=== PATIENT | female | born 1995 | race Caucasian/White ===

== ENCOUNTER → 2017-07-03 | Outpatient (CLI) | payer OTHER | END | disposition home or self-care (01) | LOC: C.PAPS 09:52 | PROVIDERS: ATTEND Physician Assistant | DX: Z01.419 Encounter for gynecological examination (general) (routine) without abnormal findings (principal) ==

== ENCOUNTER 2020-01-18 01:33 | Inpatient (IN) ==
[2020-01-18] MEDS ORDERED: OXYTOCIN 30 UNITS/500 ML BAG IV PRN ×3 (02:14→18:53)
[2020-01-18 02:36] LABS: Hematocrit (blood only) 39.6 % (37-47); Hemoglobin 13.1 g/dL (12.0-16.0); Mean Corpuscular Hemoglobin 29.2 pg (25-34); Mean Corpuscular Hgb Conc 33.1 g/dL (32-36); Mean Corpuscular Volume 88.2 fL (80-100); Mean Platelet Volume 10.5 fL (7.4-10.4); Platelet Count 204 K/uL (130-400); RDW Coefficient of Variation 13.8 % (11.5-14.5); RDW Standard Deviation 44.6 fL (36.4-46.3); Red Blood Count 4.49 M/uL (4.2-5.4); White Blood Count 12.18 K/uL (4.8-10.8)
--- NOTE | 2020-01-18 02:50 | History & Physical Report ---
Date of Service January 18, 2020 Assessment & Plan (1) Normal labor: Admit. plan reviewed--desires no intervention. Fetus category one. Thin mec. Anticipates . History of Present Illness Chief Complaint: leaking fluid Primary Care Provider: MARCOS PCP Patient is a 24yowf with iup at 38 6/7 weeks who presents to labor and delivery complaining of leaking fluid. [place] a pop and then had a large gush of fluid soaking her bed. Notes it was yellow/green. +contractions. +FM. uncomplicated. labs--O+/ab-/ri/rprnr/hepb-/hiv-/gc/ct-/declines cf/sma/panorama/ nl gtt x 2/gbs neg Allergies Allergy/AdvReac Type Severity Reaction Status Date / Time No Known Drug Allergies Allergy Verified 01/13/20 11:00 Home Medications Home Medications Medication Instructions Recorded Confirmed Type prenat.vits,viri,pqd-chcf-qbpaj 1 tab PO DAILY 06/11/19 01/18/20 History sertraline 100 mg PO DAILY 01/13/20 01/18/20 History sertraline 100 mg PO DAILY 01/18/20 01/18/20 History Patient History Medical History Need for rhogam due to Rh negative mother Varicella vaccination Surgical History History of oral surgery S/P wisdom tooth extraction Family History Grandfather (Paternal) Diabetes Hypertension Social History Preferred Language: Mongolian Communication Ability: Effective Manager Heavy Duty Required: No Beliefs That Will Affect Care: None marital status: marital status details: Leonard Mcleod (29) [phone] Current Living Situation: Spouse Current Living Situation Comment: lives with spouse, dog current occupational status: employed 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 Other Information That Helps Us Care for You: No Feels Safe at Home: Yes Safety Concerns: Feels Safe At This Time Smoking Status: Never smoker Hx Alcohol Use: No Hx Substance Use: No OB History g1--present BRAND LEAD History noncontributory Review of Systems All systems reviewed & are unremarkable except as noted in HPI & below Physical Exam Constitutional: WD/WN, vitals as above Psychiatric: A+Ox3, euthymic affect Genitourinary: cx--/-2 light mec toco--q3-4min efm--130s with mod variability, +accels, no decels Results & Data Vital Signs (Past 12 Hours) Vital Signs Temp Pulse Resp BP 01/18/20 02:22 87 120/75 01/18/20 01:50 36.9 C 18 Coding Level of Care Code None Diagnoses Normal labor O80; Z37.9
--- NOTE | 2020-01-18 05:53 | Labor Progress Brief Note ---
Date of Service January 18, 2020 Subjective patient uncomfortable and breathing through contractions. Assessment & Plan (1) Normal labor: Making slow progress. declines intervention. fetus category one. Physical Exam Constitutional: WD/WN, vitals as above Psychiatric: A+Ox3, euthymic affect Genitourinary: cx--4-5/90/-2 toco--q4-5 efm--130 with mod variability, accels to 150s, no decels Results & Data Vital Signs (Past 12 Hours) Vital Signs Temp Pulse Resp BP 01/18/20 05:42 81 154/80 H 01/18/20 02:22 87 120/75 01/18/20 01:50 36.9 C 18 Coding Level of Care Code None Diagnoses Normal labor O80; Z37.9
[2020-01-18] MEDS: LACTATED RINGER'S 1,000 ML IV PRN ×3 (06:29→12:01)
[2020-01-18] MEDS ORDERED: ePHEDrine sulfate 50 MG/ML AMP ONE (06:39)
[2020-01-18] MEDS ORDERED: BUPIVACAINE 0.25% 30 ML VIAL ONE (06:39)
[2020-01-18] MEDS ORDERED: fentaNYL citrate 100 MCG/2 ML VIAL ONE (06:40)
[2020-01-18] MEDS ORDERED: fentaNYL 2MCG/ML ROPIV 1.25MG/ML 100 ML BAG EPI ONE (06:41)
--- NOTE | 2020-01-18 07:15 | Anesthesiology Consultation ---
Date of Service January 18, 2020 Assessment & Plan Chart Review Chart Review: Acceptable Risk for Labor Epidural Consults Requested none History Height/Weight Height: 5 ft 5 in Weight: 81.647 kg Allergies Allergy/AdvReac Type Severity Reaction Status Date / Time No Known Drug Allergies Allergy Verified 01/13/20 11:00 Medications Home Medications Medication Instructions Recorded Confirmed Last Taken prenat.vits,viri,xwm-ljlf-cxsjt 1 tab PO DAILY 06/11/19 01/18/20 01/16/20 20:00 sertraline 100 mg PO DAILY 01/18/20 01/18/20 01/17/20 08:00 Active Medications Generic Name Dose Route Start Last Admin Trade Name Freq PRN Reason Stop Dose Admin Lactated Ringer's 1,000 mls @ 125 mls/hr 01/18/20 02:14 01/18/20 06:29 Lr IV 01/20/20 02:13 999 mls/hr .Q8H PRN Administration L&D Protocol Protocol Past Medical History Medical History Need for rhogam due to Rh negative mother Varicella vaccination Past Family History Family History Grandfather (Paternal) Diabetes Hypertension Past Surgical History Surgical History History of oral surgery S/P wisdom tooth extraction Social History Smoking Status: Never smoker Hx Alcohol Use: No Hx Substance Use: No Physical Exam Vital Signs Last Vital Signs Temp 36.6 C 01/18/20 05:40 Pulse 81 01/18/20 05:42 Resp 20 01/18/20 05:40 BP 154/80 H 01/18/20 05:42 Testing Laboratory Results 01/18/20 02:26
[2020-01-18] MEDS ORDERED: fentaNYL 2MCG/ML ROPIV 1.25MG/ML 100 ML BAG EPI PRN (07:16)
[2020-01-18] MEDS ORDERED: NALOXONE HCL 1 MG in SODIUM CHLORIDE 0.9% 1000ML 1,000 ML IV PRN (07:16)
[2020-01-18] MEDS ORDERED: NALBUPHINE HCL INJ 10 MG/ML AMP IV PRN (07:16)
[2020-01-18] MEDS ORDERED: DiphenhydrAMINE HCL 50 MG/ML VIAL IV PRN (07:16)
[2020-01-18] MEDS ORDERED: NALOXONE HCL 0.4 MG/1 ML VIAL/CARP IV PRN (07:16)
[2020-01-18] MEDS ORDERED: ePHEDrine sulfate 50 MG/ML AMP IV PRN (07:16)
--- NOTE | 2020-01-18 08:13 | Labor Progress Brief Note ---
Date of Service January 18, 2020 Subjective comfortable with epidural. Assessment & Plan (1) Normal labor: Has been 4-5 for some time. I have suggested augmentation with pitocin. She continues to decline at this point. May be more amendable in an hour. she is hoping since she is relaxed she might change. Tika will check her in one hour and if no change readdress augmentation. Physical Exam Constitutional: WD/WN, vitals as above Psychiatric: A+Ox3, euthymic affect Genitourinary: cx----no change per nursing. toco--q2-4min efm--130s with mod variability, accels present, no decels Results & Data Vital Signs (Past 12 Hours) Vital Signs Temp Pulse Resp BP Pulse Ox 01/18/20 08:08 97 H 108/68 01/18/20 08:07 95 H 98 01/18/20 08:06 90 106/62 01/18/20 08:04 100 H 108/67 01/18/20 08:02 98 H 110/69 99 01/18/20 08:00 101 H 118/77 01/18/20 07:58 101 H 114/76 01/18/20 07:57 102 H 97 01/18/20 07:56 90 109/72 01/18/20 07:54 100 H 109/53 L 01/18/20 07:52 100 H 106/64 98 01/18/20 07:50 109 H 114/77 01/18/20 07:48 95 H 116/74 01/18/20 07:47 100 H 97 01/18/20 07:46 102 H 106/74 01/18/20 07:44 95 H 112/83 01/18/20 07:42 102 H 110/79 98 01/18/20 07:40 93 H 133/82 01/18/20 07:38 99 H 119/79 01/18/20 07:37 98 H 97 01/18/20 07:36 100 H 118/79 01/18/20 07:34 36.7 C 99 H 20 130/86 01/18/20 07:32 84 99 01/18/20 07:29 94 H 147/92 H 01/18/20 07:22 88 100 01/18/20 05:42 81 154/80 H 01/18/20 05:40 36.6 C 20 01/18/20 02:22 87 120/75 01/18/20 01:50 36.9 C 18 Coding Level of Care Code None Diagnoses Normal labor O80; Z37.9
[2020-01-18] MEDS ORDERED: Nursing to Pharmacy Communication ONE (13:07)
--- NOTE | 2020-01-18 13:30 | Labor Progress Brief Note ---
Date of Service January 18, 2020 Subjective noting some lower pelvic discomfort and pressure. Assessment & Plan (1) Normal labor: Will begin second stage. fetus category one. anticipate . Physical Exam Constitutional: WD/WN, vitals as above Psychiatric: A+Ox3, euthymic affect Genitourinary: cx--c/c/+2 toco--q 3 min, pit at 10 efm--150s with mod variability, accels to 170s, no decels Results & Data Vital Signs (Past 12 Hours) Vital Signs Temp Pulse Resp BP Pulse Ox 01/18/20 13:25 101 H 113/73 01/18/20 13:22 90 99 01/18/20 13:17 99 H 97 01/18/20 13:12 97 H 97 01/18/20 13:11 97 H 110/69 01/18/20 13:07 96 H 98 01/18/20 13:02 96 H 98 01/18/20 12:57 95 H 99 01/18/20 12:56 94 H 106/74 01/18/20 12:52 91 H 98 01/18/20 12:47 99 H 98 01/18/20 12:42 92 H 98 01/18/20 12:40 95 H 118/78 01/18/20 12:37 96 H 99 01/18/20 12:32 106 H 98 01/18/20 12:27 98 H 98 01/18/20 12:25 92 H 105/61 01/18/20 12:22 94 H 96 01/18/20 12:17 92 H 96 01/18/20 12:12 91 H 98 01/18/20 12:11 88 110/66 01/18/20 12:07 94 H 98 01/18/20 12:02 89 98 01/18/20 12:00 36.7 C 01/18/20 11:57 101 H 97 01/18/20 11:56 93 H 110/62 01/18/20 11:52 94 H 97 01/18/20 11:47 93 H 98 01/18/20 11:42 94 H 97 01/18/20 11:40 95 H 99/59 L 01/18/20 11:37 94 H 96 01/18/20 11:32 94 H 97 01/18/20 11:27 94 H 114/64 99 01/18/20 11:22 88 97 01/18/20 11:17 94 H 99 01/18/20 11:12 95 H 98 01/18/20 11:11 101 H 117/61 92 01/18/20 11:07 94 H 97 01/18/20 11:02 94 H 97 01/18/20 10:57 89 98 01/18/20 10:55 95 H 108/62 01/18/20 10:52 93 H 98 01/18/20 10:47 94 H 96 01/18/20 10:42 97 H 97 01/18/20 10:40 36.5 C 96 H 20 117/56 L 01/18/20 10:37 85 97 01/18/20 10:32 89 96 01/18/20 10:27 87 96 01/18/20 10:26 81 103/59 L 01/18/20 10:22 91 H 97 01/18/20 10:17 84 96 01/18/20 10:12 87 97 01/18/20 10:10 83 107/58 L 01/18/20 10:07 84 97 01/18/20 10:02 84 98 01/18/20 10:00 18 01/18/20 09:57 88 99 01/18/20 09:55 86 20 105/59 L 01/18/20 09:52 88 97 01/18/20 09:48 94 H 92 01/18/20 09:47 87 97 01/18/20 09:46 77 111/56 L 01/18/20 09:42 95 H 97 01/18/20 09:37 87 20 97 01/18/20 09:32 88 98 01/18/20 09:27 85 97 01/18/20 09:26 86 107/55 L 01/18/20 09:22 89 97 01/18/20 09:17 96 H 98 01/18/20 09:12 96 H 98 01/18/20 09:11 97 H 121/74 01/18/20 09:07 92 H 98 01/18/20 09:02 94 H 96 01/18/20 08:57 92 H 98 01/18/20 08:55 89 18 103/65 01/18/20 08:52 98 H 98 01/18/20 08:47 91 H 98 01/18/20 08:42 97 H 98 01/18/20 08:40 102 H 90/58 L 01/18/20 08:37 98 H 98 01/18/20 08:32 93 H 98 01/18/20 08:27 99 H 99 01/18/20 08:25 101 H 18 123/65 01/18/20 08:22 93 H 99 01/18/20 08:18 101 H 91 01/18/20 08:17 97 H 99 01/18/20 08:12 100 H 97 01/18/20 08:10 93 H 113/63 01/18/20 08:08 97 H 108/68 01/18/20 08:07 95 H 98 01/18/20 08:06 90 106/62 01/18/20 08:04 100 H 18 108/67 01/18/20 08:02 98 H 110/69 99 01/18/20 08:00 101 H 20 118/77 01/18/20 07:58 101 H 20 114/76 01/18/20 07:57 102 H 97 01/18/20 07:56 90 20 109/72 01/18/20 07:54 100 H 20 109/53 L 01/18/20 07:52 100 H 20 106/64 98 01/18/20 07:50 109 H 20 114/77 01/18/20 07:48 95 H 20 116/74 01/18/20 07:47 100 H 97 01/18/20 07:46 102 H 20 106/74 01/18/20 07:44 95 H 22 112/83 01/18/20 07:42 102 H 110/79 98 01/18/20 07:40 93 H 22 133/82 01/18/20 07:38 99 H 20 119/79 01/18/20 07:37 98 H 97 01/18/20 07:36 100 H 20 118/79 01/18/20 07:34 36.7 C 99 H 20 130/86 01/18/20 07:32 84 99 01/18/20 07:29 94 H 147/92 H 01/18/20 07:22 88 100 01/18/20 05:42 81 154/80 H 01/18/20 05:40 36.6 C 20 01/18/20 02:22 87 120/75 01/18/20 01:50 36.9 C 18 Coding Level of Care Code None Diagnoses Normal labor O80; Z37.9
--- NOTE | 2020-01-18 14:42 | Labor Progress Brief Note ---
Date of Service January 18, 2020 Subjective pushing with good effort Assessment & Plan (1) Normal labor: continue second stage. good effort . fetus reassuring. anticipate . Physical Exam Constitutional: WD/WN, vitals as above Psychiatric: A+Ox3, euthymic affect Genitourinary: c/c/+2 q2min efm--150s with mod variability, accels present, no decels Results & Data Vital Signs (Past 12 Hours) Vital Signs Temp Pulse Resp BP Pulse Ox 01/18/20 14:37 115 H 98 01/18/20 14:32 98 H 96 01/18/20 14:28 122 H 164/77 H 01/18/20 14:27 124 H 95 01/18/20 14:22 117 H 99 01/18/20 14:17 103 H 98 01/18/20 14:12 97 H 99 01/18/20 14:10 100 H 114/57 L 01/18/20 14:07 107 H 98 01/18/20 14:05 106 H 92 01/18/20 14:02 95 H 98 01/18/20 13:57 94 H 98 01/18/20 13:55 98 H 112/71 01/18/20 13:52 102 H 98 01/18/20 13:47 99 H 98 01/18/20 13:42 102 H 99 01/18/20 13:41 107 H 93 01/18/20 13:40 100 H 118/76 01/18/20 13:37 99 H 100 01/18/20 13:32 102 H 99 01/18/20 13:27 99 H 98 01/18/20 13:25 101 H 113/73 01/18/20 13:22 90 99 01/18/20 13:17 99 H 97 01/18/20 13:12 97 H 97 01/18/20 13:11 97 H 110/69 01/18/20 13:07 96 H 98 01/18/20 13:02 96 H 98 01/18/20 12:57 95 H 99 01/18/20 12:56 94 H 106/74 01/18/20 12:52 91 H 98 01/18/20 12:47 99 H 98 01/18/20 12:42 92 H 98 01/18/20 12:40 95 H 118/78 01/18/20 12:37 96 H 99 01/18/20 12:32 106 H 98 01/18/20 12:27 98 H 98 01/18/20 12:25 92 H 105/61 01/18/20 12:22 94 H 96 01/18/20 12:17 92 H 96 01/18/20 12:12 91 H 98 01/18/20 12:11 88 110/66 01/18/20 12:07 94 H 98 01/18/20 12:02 89 98 01/18/20 12:00 36.7 C 01/18/20 11:57 101 H 97 01/18/20 11:56 93 H 110/62 01/18/20 11:52 94 H 97 01/18/20 11:47 93 H 98 01/18/20 11:42 94 H 97 01/18/20 11:40 95 H 99/59 L 01/18/20 11:37 94 H 96 01/18/20 11:32 94 H 97 01/18/20 11:27 94 H 114/64 99 01/18/20 11:22 88 97 01/18/20 11:17 94 H 99 01/18/20 11:12 95 H 98 01/18/20 11:11 101 H 117/61 92 01/18/20 11:07 94 H 97 01/18/20 11:02 94 H 97 01/18/20 10:57 89 98 01/18/20 10:55 95 H 108/62 01/18/20 10:52 93 H 98 01/18/20 10:47 94 H 96 01/18/20 10:42 97 H 97 01/18/20 10:40 36.5 C 96 H 20 117/56 L 01/18/20 10:37 85 97 01/18/20 10:32 89 96 01/18/20 10:27 87 96 01/18/20 10:26 81 103/59 L 01/18/20 10:22 91 H 97 01/18/20 10:17 84 96 01/18/20 10:12 87 97 01/18/20 10:10 83 107/58 L 01/18/20 10:07 84 97 01/18/20 10:02 84 98 01/18/20 10:00 18 01/18/20 09:57 88 99 01/18/20 09:55 86 20 105/59 L 01/18/20 09:52 88 97 01/18/20 09:48 94 H 92 01/18/20 09:47 87 97 01/18/20 09:46 77 111/56 L 01/18/20 09:42 95 H 97 01/18/20 09:37 87 20 97 01/18/20 09:32 88 98 01/18/20 09:27 85 97 01/18/20 09:26 86 107/55 L 01/18/20 09:22 89 97 01/18/20 09:17 96 H 98 01/18/20 09:12 96 H 98 01/18/20 09:11 97 H 121/74 01/18/20 09:07 92 H 98 01/18/20 09:02 94 H 96 01/18/20 08:57 92 H 98 01/18/20 08:55 89 18 103/65 01/18/20 08:52 98 H 98 01/18/20 08:47 91 H 98 01/18/20 08:42 97 H 98 01/18/20 08:40 102 H 90/58 L 01/18/20 08:37 98 H 98 01/18/20 08:32 93 H 98 01/18/20 08:27 99 H 99 01/18/20 08:25 101 H 18 123/65 01/18/20 08:22 93 H 99 01/18/20 08:18 101 H 91 01/18/20 08:17 97 H 99 01/18/20 08:12 100 H 97 01/18/20 08:10 93 H 113/63 01/18/20 08:08 97 H 108/68 01/18/20 08:07 95 H 98 01/18/20 08:06 90 106/62 01/18/20 08:04 100 H 18 108/67 01/18/20 08:02 98 H 110/69 99 01/18/20 08:00 101 H 20 118/77 01/18/20 07:58 101 H 20 114/76 01/18/20 07:57 102 H 97 01/18/20 07:56 90 20 109/72 01/18/20 07:54 100 H 20 109/53 L 01/18/20 07:52 100 H 20 106/64 98 01/18/20 07:50 109 H 20 114/77 01/18/20 07:48 95 H 20 116/74 01/18/20 07:47 100 H 97 01/18/20 07:46 102 H 20 106/74 01/18/20 07:44 95 H 22 112/83 01/18/20 07:42 102 H 110/79 98 01/18/20 07:40 93 H 22 133/82 01/18/20 07:38 99 H 20 119/79 01/18/20 07:37 98 H 97 01/18/20 07:36 100 H 20 118/79 01/18/20 07:34 36.7 C 99 H 20 130/86 01/18/20 07:32 84 99 01/18/20 07:29 94 H 147/92 H 01/18/20 07:22 88 100 01/18/20 05:42 81 154/80 H 01/18/20 05:40 36.6 C 20 Coding Level of Care Code None Diagnoses Normal labor O80; Z37.9
[2020-01-18] MEDS ORDERED: OXYCODONE/ACETAMINOPHEN 5mg/325mg TAB PO PRN (18:41)
[2020-01-18] MEDS ORDERED: ACETAMINOPHEN 325 MG TAB PO PRN (18:41)
--- NOTE | 2020-01-18 18:44 | Delivery Summary ---
Vaginal Delivery Summary Date of Service January 18, 2020 Vaginal Delivery Summary Pre-operative Diagnosis: at 38 6/7 srom meconium Post-operative Diagnosis: same moderate shoulder dystocia Procedure: pitocin augmentation epidural midline epis failed vacuum complicated repair--bilateral sulcal and third degree perineal EBL: 475cc Anesthesia: epidural Procedure: The patient pushed for 3 hrs 45 min to deliver a viable male infant in AYRY position. The patient requested a vacuum assist when the station was at +3. She was exhausted after pushing for about 3 hr and 15 min hours. The bladder was drained of urine. There was a large amount of caput and I was concerned that I would not be able to get a good application. I thought the baby was in op presentation. The patient desired a trial and gave verbal consent. The vacuum was applied over three contractions, could get pressure no greater than about 40mm water. Unfortunately, I could not get a good application and the vacuum popped off with all three not really bring the baby down more. At that point in time, we decided to continue to push. The baby was making slow but positive progress so decided to proceed. We did have a conversation about the possiblity of a shoulder dystocia and the possibility of a at this point. However, as we were talking, the patient continued pushing and continued to move the baby. A midline epis was cut for the vacuum application. The patient continued to push until . The baby was delivered in yary position. A moderate shoulder dystocia was then encountered. this lasted for less than a minute and was resolved with delivery of the posterior shoulder as the left arm was easily reached and swept across the body. The rest of the infant was then delivered without difficulty. The baby was placed on the maternal abdomen where he was vigorous. Cord was clamped and cut at at about 30 sec of life. Cord blood obtained. Placenta was manually extracted from the lower uterine segment. Cervix/recutm intact. On examination there were bilateral sulcal tears and a third degree perineal laceration. THe rectal sphincter was repaired by grasping with Allis clamps and 4 , figure of eight sutures were placed of 0 Vicryl. Attention was turned to the the bilateral sulcal tears which were reapproximated with 0 Vicryl. Then the rest of the perineum was repaired in the standard fashion. Hemostasis obtained with dilute pitocin and fundal massage. Apgars were 7/8. Baby weighed 8#14oz. Mother and baby doing well at the end of the delivery. [facility] [place] Vaginal Delivery Charge Vaginal Delivery Codes: 76487 global code for the antepartum, delivery, and post-
--- NOTE | 2020-01-18 18:48 | Anesthesia Procedure Note ---
Date of Service January 18, 2020 Anesthesia Post Epidural Note Vital Signs Vital Signs: Temp Pulse Resp BP Pulse Ox 36.9 C 96 H 18 110/69 99 01/18/20 18:15 01/18/20 18:40 01/18/20 18:30 01/18/20 18:40 01/18/20 17:31 Pain Intensity Bilateral Lower Abdomen: Pain Intensity: 0 Notes Mental Status: alert / awake / arousable and participated in evaluation Nausea / Vomiting: adequately controlled Pain: adequately controlled Airway Patency, RR, SpO2: stable & adequate BP & HR: stable & adequate Hydration State: stable & adequate Neuraxial Anesthesia: was administered and sensory block is resolving Anesthetic Complications: no major complications apparent Epidural: Removed without complications and With tip intact
[2020-01-18] MEDS ORDERED: SUPERCREAM 0.870% 15 GM JAR EXT PRN (18:53)
[2020-01-18] MEDS ORDERED: HYDROCORTISONE ACETATE 25 MG SUPP PR PRN (18:53)
[2020-01-18] MEDS ORDERED: BENZOCAINE 20% AER SPR 82.5 GM CAN EXT PRN (18:53)
[2020-01-18] MEDS ORDERED: DIPHTHERIA/TETANUS/PERTUSSIS 0.5 ML SYR/VIAL IM ONE (18:53)
[2020-01-18] MEDS ORDERED: bisacodyL 10 MG SUPP PR PRN (18:53)
[2020-01-18] MEDS: DOCUSATE SODIUM 100 MG CAP PO SCH (20:25)
[2020-01-18] MEDS: IBUPROFEN 600 MG TAB PO PRN (20:25)
[2020-01-19] MEDS: IBUPROFEN 600 MG TAB PO PRN ×6 (02:22→23:39)
--- NOTE | 2020-01-19 06:27 | Obstetrical Progress Note ---
Date of Service <Gerardo Olvera DO - Last Filed: 01/19/20 06:27> January 19, 2020 Assessment & Plan <DO Garth Arita Last Filed: 01/19/20 06:27> (1) Normal labor: -PPD#1 -Vitals reviewed, WNL - GBS -, Blood Type O- - Clinically stable. - Feels well today. Eating well, voiding well, ambulating well. - Pain well controlled. - Routine post- care - After discharge will have [address] Berrios. Day #:: 1 Subjective <Gerardo Olvera DO - Last Filed: 01/19/20 06:27> Ambulation: ambulating normally Voiding: no voiding problems Passing Gas:: Yes Diet Tolerance:: regular diet Lochia:: Moderate Feeding Type:: breast feeding Current Pain Level(1-10): 5 (improves with analgesics) Patient is a 24 PPD#1. Patient states that she is feeling well today and that her pain is well controlled. She does note some numbness and tingling on the R lateral upper thigh, but no weakness. She has no other complaints at this time. Constitutional: no fever and no chills Respiratory: no cough, no dyspnea and no wheezing Cardiovascular: + edema; no chest pain, no dyspnea, no palpitations and no calf pain Breast: + breast pain (nipple pain with feeds) Gastrointestinal: no abdominal pain, no nausea and no vomiting Genitourinary (female): no dysuria and no difficulty urinating Neurologic: no headache(s) Physical Exam <DO Garth Arita Last Filed: 01/19/20 06:27> Constitutional WD/WN, vitals as above Respiratory normal respiratory effort, lungs clear to auscultation Cardiovascular Rate/Rhythm: regular rate and regular rhythm Heart Sounds: normal S1 and normal S2; no click, no gallop, no murmur and no cardiac rub Extremities: + edema (trace); no calf tenderness Gastrointestinal (Abdomen) Inspection/Auscultation: abdomen normal to inspection and normal bowel sounds Percussion/Palpation: abdomen soft; abdomen nontender Genitourinary OB Exam Abdomen: + fundal height Fundus: + firm and + relation to umbilicus (at level of umbilicus, patient has not voided this AM yet); not tender and not boggy Results & Data <Gerardo Olvera DO - Last Filed: 01/19/20 06:27> Vital Signs (Past 12 Hours) Vital Signs Temp Pulse Pulse Resp BP BP Pulse Ox 01/19/20 04:00 36.8 C 88 18 101/70 01/18/20 23:30 36.7 C 90 18 97/67 L 01/18/20 21:10 36.9 C 92 H 18 108/75 98 01/18/20 20:22 105 H 106/57 L 01/18/20 20:15 36.8 C 18 01/18/20 20:10 109 H 114/56 L 01/18/20 19:55 111 H 110/58 L 01/18/20 19:45 18 01/18/20 19:40 105 H 114/58 L 01/18/20 19:25 109 H 106/66 01/18/20 19:15 18 01/18/20 19:10 101 H 122/71 01/18/20 19:00 101 H 20 122/71 01/18/20 18:55 107 H 104/74 01/18/20 18:45 18 01/18/20 18:40 96 H 110/69 01/18/20 18:30 18 01/18/20 18:25 109 H 117/82 <Connie Berrios MD, FACOG - Last Filed: 01/19/20 07:33> Co-Signing Physician Notes Resident Physician Supervision Note: I interviewed and examined the patient. Discussed with Dr. Olvera and agree with findings and plan as documented in the note. Any exceptions or clarifications are listed here: Doing well. Routine care. Has some lateral cutaneous neuropathy from let positioning with almost 4 hour push. Reassured. Should slowly improve. Documented By: Connie Berrios MD, FACOG Resident Activity Tracking <Gerardo Olvera DO - Last Filed: 01/19/20 06:27> Resident Involvement: Resident Care Provided Care Provided: OB Delivery
[2020-01-19 06:51] LABS: Hemoglobin 9.3 g/dL (12.0-16.0)
[2020-01-19] MEDS ORDERED: SERTRALINE HCL 100 MG TABLET PO SCH ×2 (09:00→21:00)
[2020-01-19] MEDS: DOCUSATE SODIUM 100 MG CAP PO SCH ×2 (09:12→19:39)
[2020-01-19] MEDS: PRENATAL VITAMIN 1 TAB PO SCH (09:13)
[2020-01-19] MEDS ORDERED: Nursing to Pharmacy Communication ONE (09:44)
[2020-01-19] MEDS ORDERED: bisacodyL 5 MG TABEC PO SCH (20:00)
--- NOTE | 2020-01-20 07:02 | Obstetrical Progress Note ---
Date of Service <Gerardo Olvera DO Last Filed: 01/20/20 07:01> January 20, 2020 Assessment & Plan <DO Garth Arita Last Filed: 01/20/20 07:01> (1) Normal labor: -PPD#2 -Vitals reviewed, WNL - GBS -, Blood Type O- - Clinically stable. - Feels well today. Eating well, voiding well, ambulating well. - Pain well controlled. - Routine post- care - Discharge instructions discussed with patient - After discharge will have [address] Berrios. Day #:: 2 Subjective <Gerardo Olvera DO Last Filed: 01/20/20 07:01> Ambulation: ambulating normally Voiding: no voiding problems Passing Gas:: Yes Diet Tolerance:: regular diet Lochia:: Small Feeding Type:: breast feeding Current Pain Level(1-10): 5 (improves with analgesics) Patient is a 24 PPD#2. Patient states that she is feeling well today and that her pain is well controlled. She has no other complaints at this time. Constitutional: no fever and no chills Respiratory: no cough, no dyspnea and no wheezing Cardiovascular: + edema; no chest pain, no dyspnea, no palpitations and no calf pain Breast: + breast pain (nipple pain with feeds) Gastrointestinal: no abdominal pain, no nausea and no vomiting Genitourinary (female): no dysuria and no difficulty urinating Neurologic: no headache(s) Physical Exam <DO Garth Arita Last Filed: 01/20/20 07:01> Constitutional WD/WN, vitals as above Respiratory normal respiratory effort, lungs clear to auscultation Cardiovascular Rate/Rhythm: regular rate and regular rhythm Heart Sounds: normal S1 and normal S2; no click, no gallop, no murmur and no cardiac rub Extremities: + edema (trace); no calf tenderness Gastrointestinal (Abdomen) Inspection/Auscultation: abdomen normal to inspection and normal bowel sounds Percussion/Palpation: abdomen soft; abdomen nontender Genitourinary OB Exam Abdomen: + fundal height Fundus: + firm and + relation to umbilicus (3cm below ); not tender and not boggy Results & Data <DO Garth Arita Last Filed: 01/20/20 07:01> Vital Signs (Past 12 Hours) Vital Signs Temp Pulse Resp BP Pulse Ox 01/19/20 23:30 36.5 C 83 16 101/65 100 01/19/20 21:00 36.9 C 88 17 105/74 98 <Richie Montgomery MD - Last Filed: 01/20/20 07:59> Co-Signing Physician Notes Patient seen and evaluated and agree with the above findings and plan. Routine care Resident Activity Tracking <Gerardo Olvera DO - Last Filed: 01/20/20 07:01> Resident Involvement: Resident Care Provided Care Provided: OB Delivery
[2020-01-20] MEDS: DOCUSATE SODIUM 100 MG CAP PO SCH (09:01)
[2020-01-20] MEDS: IBUPROFEN 600 MG TAB PO PRN (09:01)
[2020-01-20] MEDS: PRENATAL VITAMIN 1 TAB PO SCH (09:01)
--- NOTE | 2020-01-21 14:48 | Discharge Summary (DS) ---
ADMISSION DIAGNOSES: 1. Intrauterine at 38 and 6/7 weeks. 2. Spontaneous rupture of membranes. 3. Thin meconium. DISCHARGE DIAGNOSES: 1. Intrauterine at 38 and 6/7 weeks. 2. Spontaneous rupture of membranes. 3. Thin meconium. 4. Vaginal delivery. PROCEDURES: Epidural, Pitocin augmentation, failed vacuum, normal spontaneous vaginal delivery. Bilateral focal tears and third-degree laceration with repair. HISTORY OF PRESENT ILLNESS: The patient is a 24-year-old white female 1, para 0 with an intrauterine at 38 and 6/7 weeks who presented to labor and delivery complaining of leaking of fluid. She heard a pop and then had a large gush of fluid soaking her bed, notes the fluid was yellow green. She notes some contractions, good movement and her is uncomplicated. For the rest of the patient's history and physical, please see her history and physical. On physical exam, her cervix was 4, 75, -2, showing light meconium. Tocodynamometer q.3-4 minutes. EFM 130s with moderate variability plus accels, no decels. ASSESSMENT: This is an intrauterine at 38 and 6/7 weeks with spontaneous rupture of membranes. She was admitted. The fetus was category 1. HOSPITAL COURSE: The patient desired minimal intervention, so she was allowed to labor. Unfortunately, she did not make cervical change and required Pitocin augmentation. She then eventually got an epidural anesthetic. She then progressed to complete-complete and +2 station and pushed for approximately 2 hours and 45 minutes, at which point the fetus was at +2 to +3, thought to be direct OP and was exhausted, requesting assistance. I told her that I could try to assist with the vacuum; however, the patient's fetus had significant amount of caput that I was concerned about appropriate application and suction for the vacuum to work. We discussed the risks of vacuum and she desired me to proceed. We did attempt the vacuum over 3 contractions with 3 pop-offs. Pressure was never greater than 50 cm of water and I never really had good application of the vacuum because of the caput. At that point in time, I discussed a section with the patient or she could continue to push. She desired to continue to push. The patient did make slow positive progress with pushing eventually to and did deliver the head in occiput anterior presentation. A shoulder dystocia was then identified that was relieved by placing the patient flat placing her legs in John[place] and then I was able to reach the posterior arm of the baby, which was the left arm. The right shoulder was anterior and I was able to deliver that shoulder and then the rest of the baby delivered. The nose and mouth were bulb suctioned. The infant was placed on maternal abdomen for drying and attention. Cord blood and gases were obtained. Bilateral focal tears and third-degree perineal laceration were identified and repaired. The patient's postoperative course was uncomplicated. She tolerated a regular diet, ambulated without difficulty, had her pain well controlled and voided without difficulty. She was discharged home on day #2 for routine care and to follow up in the office in 6 weeks.
== END 2020-01-20 15:35 | disposition home or self-care (01) | DRG 768 ==
LOC: OPB 01:33 → 4S1 01:34 → 4S2 20:55